=== PATIENT | female | born 1985 | race Caucasian/White ===

== ENCOUNTER 2022-05-19 16:29 | Emergency (ER) | payer MEDICAID, SELFPAY ==
[2022-05-19 16:42] VITALS: BP 128/75; PULSE 116; RESP 18; TEMP 36.7; O2SAT 93; BMI 48.8
--- NOTE | 2022-05-19 18:29 | ED_ITS ---
HPI - Back Pain/Injury General Chief Complaint: Back Injury/Pain Stated Complaint: Lower back pain Time Seen by Provider: 05/19/22 18:20 History of Present Illness HPI Narrative: 36yo female patient with known history of back pain presents to the ED with acute complaints of recurrent back pain. The patient denies any acute injury or trauma. The patient denies any groin numbness, tingling, or weakness. The patient denies any changes in bowel or bladder habits. Patient denies any g iving way of either leg. The patient does report numbness in her toes bilaterally, this is not new for her. The patient has known history of degenerative disc disease secondary to morbid obesity. She has upcoming surgery for this acute concerns/complaints. The patient has no other acute concerns or complaints. She denies fever, chills, or sweats. Patient denies any nausea, vomiting, or diarrhea. The patient denies any dysuria. She has no concern for potential . See nursing notes for complete details. Related Data Previous Rx's Medication Instructions Recorded gabapentin 600 mg tablet 600 mg PO BID #60 tabs 05/19/22 lidocaine 5 % patch and menthol 6 See Rx Instructions topical 05/19/22 % gel topical kit .COMPLEX #5 ea Allergies Allergy/AdvReac Type Severity Reaction Status Date / Time doxycycline Allergy Verified 05/19/22 16:42 acetaminophen [From Percocet] AdvReac Nausea Verified 05/19/22 16:42 hydrocodone [From Vicodin] AdvReac Nausea Verified 05/19/22 16:42 oxycodone [From Percocet] AdvReac Nausea Verified 05/19/22 16:42 Review of Systems Const: Denies: fever, chills, fatigue, malaise or night sweats Cardio: Denies: shortness of breath with exertion Resp: Denies: shortness of breath or cough GI: Denies: nausea, vomiting, diarrhea or constipation : Denies: painful urination, urinary frequency or urinary urgency Musculo: Reports: back pain and limited range of motion; Denies: extremity pain Integ/Breast: Denies: redness Neuro: Denies: headache, lack of coordination or dizziness Endo: Denies: fatigue PFSH PFSH Social History Smoking Status: Former smoker What tobacco products do you use: cigarettes Do you use any of these nicotine containing products: None Second hand tobacco smoke exposure: No How often do you have a drink containing alcohol: monthly or less How many standard drinks containing alcohol do you have on a typical day: 1 or 2 How often do you have six or more drinks on one occasion: Less than monthly AUDIT-C Alcohol total score: 2 Non-prescribed substance use: marijuana (any form) service: No Exam Const: Vital Signs, click to edit/add: Vital Signs - 24 hr 05/19/22 16:42 05/19/22 18:33 Temperature 98.0 F Pulse Rate [Pulse Oximeter] 116 H 76 Respiratory Rate 18 Blood Pressure [Ri ght Forearm] 100/61 Blood Pressure [Ri ght Upper Arm] 128/75 Pulse Oximetry 93 98 Oxygen Delivery Me thod Room Air Room Air Documenting provider has reviewed patient's vital signs: yes Common normals: no apparent distress and oriented x3 General appearance: cooperative, comfortable and well developed Nutritional appearance: obese Orientation/consciousness: Yes awake, Yes oriented to person, Yes oriented to place and Yes oriented to time HENMT: Common normals: normocephalic and head/scalp atraumatic Head and scalp: normocephalic and atraumatic Neck & C-Spine: Common normals: full ROM and no lymphadenopathy Resp: Common normals: normal respiratory effort, no use of accessory muscles and clear to auscultation bilaterally Effort & inspection: able to speak in complete sentences Auscultation: clear to auscultation bilaterally Cardio: Common normals: regular rate, regular rhythm, S1 normal heart sound, S2 normal heart sound, no gallops, no clicks and no murmurs Rate: regular rate Rhythm: regular rhythm Heart sounds: S1 normal and S2 normal Extremity: Common normals: normal to inspection, normal capillary refill, no clubbing, cyanosis or edema and no pedal edema Neuro: Common normals: oriented x3 Sensorium/orientation: awake, oriented to person, oriented to place and oriented to time Psych: Psychiatry clinicians, please identify where your Mental Status Exam is documented: Mental Status Exam documented in the separate MSE Common normals: thought process normal, cooperative and affect normal Attitude: calm Thought process: normal thought process Skin: Common normals: no rashes or lesions noted General skin exam: no rashes or lesions noted Course Course Hospital Course: Kavita presented to the ED with acute on chronic back pain. She denied new injury or trauma and reported pain is similar to previous back pains. We discussed imaging, which has previously been performed, and she declines additional imaging at present. She denies infectious concern or complaint. Patient was offered laboratory testing, but declined without acute infectious concern. Vital Signs Vital signs: Initial Vital Signs Temperature 98.0 F 05/19/22 16:42 Temperature Source Temporal Artery Scan 05/19/22 16:42 Pulse Rate 116 H 05/19/22 16:42 Respiratory Rate 18 05/19/22 16:42 Blood Pressure 128/75 05/19/22 16:42 Blood Pressure Mean 92 05/19/22 16:42 Blood Pressure Position Sitting 05/19/22 16:42 Pulse Oximetry 93 05/19/22 16:42 Oxygen Delivery Method 05/19/22 16:42 Vital Signs Temperature 98.0 F 05/19/22 16:42 Pulse Rate 116 H 05/19/22 16:42 Respiratory Rate 18 05/19/22 16:42 Blood Pressure 128/75 05/19/22 16:42 Pulse Oximetry 93 05/19/22 16:42 Oxygen Delivery Method 05/19/22 16:42 Temperature 98.0 F 05/19/22 16:42 Pulse Rate 76 05/19/22 18:33 Respiratory Rate 18 05/19/22 16:42 Blood Pressure 100/61 05/19/22 18:33 Pulse Oximetry 98 05/19/22 18:33 Oxygen Delivery Method 05/19/22 18:33 Discharge Plan Discharge Clinical Impression: Lumbar radiculopathy Patient Disposition: Home, Self-Care Condition: Stable Instructions: Lower Back Exercises (ED) Additional Instructions: Thank you for choosing [facility] for your care today. Take NSAID of choice - Advil, Aleve, Motrin, or substitute - scheduled per package directions with food for 72hrs. Take pain medication as prescribed. Use RICE - rest, ice, compression, and elevation - as needed for symptom control. I recommend following up with your primary physician in 1-2wks if a significant improvement of symptoms is not noted. Continue routine activity as tolerated. You may consider topical medications including capsaicin or lidocaine patches to assist with symptom control. If new or worsening symptoms develop or you have any concerns in the meantime, please call your primary care clinic or return to the ER for re-evaluation. Activity Level: Activity as Tolerated Discharge Diet: Heart Healthy (2 gm sodium, low fat) Prescriptions: New gabapentin 600 mg tablet 600 mg PO BID Qty: 60 2RF lidocaine-menthol 5-6 % kit See Rx Instructions .ROUTE .COMPLEX Qty: 5 0RF Rx Instructions: apply LIDIOCAINE PATCH once a day/may leave on for up to 12 hrs; apply MENTHOL GEL 1 - 4 times/day as needed for pain. Stand Alone Forms: Work/School Release, Qiro Info Instructions
[2022-05-19 18:33] VITALS: BP 100/61; PULSE 76; O2SAT 98
[2022-05-19] MEDS: KETOROLAC 30 MG/ML inj IM (18:40)
[2022-05-19] MEDS: GABAPENTIN 600 MG TABLET PO (19:14)
[2022-05-19] MEDS: LIDOCAINE 5% PATCH 1 PATCH TRANSDERMA (19:15)
== END 2022-05-19 19:29 | disposition home or self-care (01) ==
LOC: ED 18:40
PROVIDERS: Emergency Provider Family Medicine
DX: M54.16 Radiculopathy, lumbar region (principal)
CPT/HCPCS: 96372; 99283; 99284; A9270; J1885

== ENCOUNTER 2022-06-11 15:32 | Outpatient (CLI) | payer MEDICAID, SELFPAY ==
--- NOTE | 2022-06-11 15:30 | MR_ITS ---
[facility] [address] [facility] [address] Phone:?[phone] Fax:?[phone] Referring Physician Information: Jose Rai [address] [facility] [address] Phone:?[phone] Fax:?[phone] Patient:Sravan Johns D.O.B:?1985 Sex:?Female Phone:?[phone] [facility] MRN:?[id number] Exam Date:?06/11/2022 ? EXAM: MRI LUMBAR SPINE WITHOUT CONTRAST CLINICAL INFORMATION: 36-year-old woman with low extremity radicular symptoms. TECHNICAL INFORMATION: MRI lumbar spine was obtained on 1.5 Sherry magnet including sagittal T2, T1, and STIR images. Axial T2 and T1-weighted images. INTERPRETATION: This exam is compared to MRI study dated 02/05/2018. There is normal lordotic curvature of the lumbar spine. No loss of vertebral body height. Mild inflammatory endplate change at L3-4 and L2-3. Endplate irregularities and Schmorl's nodes at multiple levels indicative of Scheuermann's-type endplate changes. The conus is at the L1 level and is normal in appearance. L5-S1: Moderate degenerative disc disease with chronic endplate change and disc bulge. No central spinal canal or foraminal stenosis. The facet joints are unremarkable. L4-5: Mild degenerative disc disease with small central disc protrusion and annular fissure. No central spinal canal stenosis. The ganglia exit without compromise. The facet joints are unremarkable. L3-4: Mild degenerative disc disease and disc bulge with 3 mm left posterior lateral disc protrusion which is new compared to the previous study. Left-sided subarticular recess stenosis with impingement upon the traversing left L4 nerve. The facet joints are unremarkable. The foramen are patent. L2-3: Mild degenerative disc disease and disc bulge. No central spinal canal or foraminal stenosis. The facet joints are unremarkable. L1-2 through T11-12: No central spinal canal or foraminal stenosis. Schmorl's nodes at each level. CONCLUSION: Multilevel degenerative disc disease and Scheuermann's-type endplate changes with specific findings according to level includin. L3-4 3 mm left posterior lateral disc protrusion which is new compared to the previous study. Left-sided subarticular recess stenosis and impingement upon the traversing left L4 nerve. 2. L4-5 small central disc protrusion with annular fissure. No central spinal canal stenosis or neural impingement. No interval change. 3. Inflammatory endplate change at L3-4 and L2-3 which is new since the comparison study and may represent a cause of axial low back pain. LPB Electronically signed on 06/12/2022 8:59:00 PM by Sherine Rich M.D.
== END 2022-06-11 15:33 | disposition home or self-care (01) ==
LOC: MRI 15:33
PROVIDERS: PCP Nurse Practitioner Family; Visit Provider Nurse Practitioner Family
DX: M54.16 Radiculopathy, lumbar region (principal); M51.36 Other intervertebral disc degeneration, lumbar region; M51.26 Other intervertebral disc displacement, lumbar region
CPT/HCPCS: 72148

== ENCOUNTER 2022-07-21 11:15 | Outpatient (RCR) | payer MEDICAID, SELFPAY | END 2022-10-15 11:06 | disposition home or self-care (01) | PROVIDERS: PCP Nurse Practitioner Family; Visit Provider Nurse Practitioner Family | DX: M54.16 Radiculopathy, lumbar region (principal); Z51.89 Encounter for other specified aftercare | CPT/HCPCS: 80053; 80061; 84443; 97012; 97032; 97110; 97140; 97161 ==